=== PATIENT | female | born 1970 | race African-American/Black ===

== ENCOUNTER → 2016-10-07 | Outpatient (CLI) | payer MEDICARE, MEDICAID ==
[2016-03-13 11:31] VITALS: BP 144/98
[~2016-10-07] MED LIST: AMLO5TAB2 PO; BIOT5TAB PO; BUPR100T6 PO; CETI10CA PO; CHOL100013 PO; CYAN10005 PO; CYCL10TA2 PO; CYCL1DRO OP; FERR-26 PO; HYDR12.53 PO; HYDR12.58 PO; KETO10DR6 EACHEYE; NAPR550T3 PO; OMEG500C PO; OXYC-323 PO; PILO5TAB11 PO; SENN1TAB7 PO; ZALE5CAP PO
--- NOTE | 2016-10-07 15:48 | CARD ---
APPROVED REPORT INDICATION Chest Pain Reason : Patient complained of pain PROCEDURE The patient underwent an Exercise Stress Test using the Manuel Protocol. Blood pressure, heart rate, a nd EKG were monitored. An Echocardiogram was performed by plastic surgery technician in four stages in quad fashion. At peak stress four se lected images were obtained and placed side by side with resting images for comparison. STRESS ECHO FINDINGS The resting Echocardiogram showed normal left ventricular contractility with an estimated Ejection Fr action of about 60 %. Normal augmentation of myocardial wall segments using a 16 segment model. Test Type: Exercise Stress Nurse/Tech: victorino white Test Indications: intermittent chest pain Cardiac History and Allergies: HTN, SEE EHR Medications: SEE EHR Medical History: RECENT POST HTN, SEE EHR Resting ECG: SR Resting Heart Rate: 96 bpm Resting Blood Pressure: 121/69mmHg Pretest Chest Pain: No chest pain Nurse/Tech Notes DENIES SOA OR CHEST PAIN AT THIS TIME. Consent: The procedure was explained to the patient in lay terms. Informed consent was witnessed. Adan eout was entered into [employer]. History and Stress Test performed by VICTORINO WHITE Stress Symptoms LEG FATIGUE, SOA, PT WAS AT A BRISK WALK. POST EXERCISE Reason for Termination: Reached target heart rate Target HR: 149 Max HR: 166 bpm 95% of Maximum Predicted HR: 175 bpm Exercise duration: 7:35 min:sec, 3 Stage Exercise capacity: 10.0METs Max Blood Pressure: 140/77mmHg Blood Pressure response to exercise: Normal blood pressure response during stress. Heart Rate response to exercise: WNL Chest Pain: No. Arrhythmia: No. ST Change: No. INTERPRETATION Stress EKG Conclusion: No evidence of stress induced EKG changes. STRESS ECG Stress EKG shows no significant changes. Preliminary Notification Critical Value: No <Conclusion> Normal EKG at baseline and peak stress. No ischemia. Baseline echo with normal LV function and wall motion. EF 55% Stress echo with normal LV function, some images obtained at less than peak stress (decreasing specif icity of test) but overall no significant wall motion abnormality.
== END | disposition home or self-care (01) ==
LOC: ECHO 12:40
PROVIDERS: ATTEND Physician Assistant Medical
DX: R07.9 Chest pain, unspecified (principal)
CPT/HCPCS: 93017; 93350

== ENCOUNTER → 2018-06-15 | Outpatient (CLI) | payer MEDICARE, MEDICAID ==
[2016-03-13 11:31] VITALS: BP 144/98
[~2018-06-15] MED LIST changes: -AMLO5TAB2 PO; +AMLO5TAB7 PO; -FERR-26 PO; +FERR325T14 PO; -HYDR12.53 PO; +HYDR12.575 PO; +MORPHINE SULFATE 4 MG/ML VIAL. IV ONE; +NAPR-677 PO; -NAPR550T3 PO; -OXYC-323 PO; +OXYC1TAB15 PO; -SENN1TAB7 PO; +SENN1TAB8 PO
--- NOTE | 2018-06-15 10:40 | RAD ---
EXAM: Abdomen sonogram limited. HISTORY: Pain. TECHNIQUE: Sonographic imaging of the abdomen was performed. COMPARISON: None. FINDINGS: The liver is normal in size. No focal hepatic lesion is seen. There is suspected slight hepatic steatosis. The gallbladder is filled with stones. There is no gallbladder wall thickening. The common bile duct is normal in caliber. The right kidney, pancreas, and inferior vena cava are unremarkable. The aorta is not assessed. IMPRESSION: 1. Stone filled gallbladder. There is no convincing evidence of superimposed cholecystitis. 2. Suspected slight hepatic steatosis. Electronically signed by: Sinai Collins MD (06/15/2018 10:36 AM) [id number]
--- NOTE | 2018-06-15 12:45 | RAD ---
HEPATOBILIARY SCAN WITH EJECTION FRACTION 06/15/2018 12:23 PM History: STONES ON U.S. 4MG MORPHINE IV POST I HR OF IMAGING 5.5MCI 99MTC CHOLETEC ABDMONIAL PAIN X 1 MONTH COMPARISON STUDY: Abdominal ultrasound, earlier today Procedure: Serial static images are obtained of the liver and biliary system in the frontal projection following IV administration of 5.5 mCi of Technetium 99m Choletec. The gallbladder was not visualized at 1 hour. 4 mg of morphine was given. Imaging of the abdomen was continued. Findings: The gallbladder is nonvisualized. Filling of the biliary tree and excretion of radiotracer into the bowel is noted. Despite the administration of morphine, gallbladder remained nonvisualized. IMPRESSION: Nonvisualization of the gallbladder. Findings raise concern for acute cholecystitis. Electronically signed by: Ronnie Vickers MD (06/15/2018 12:41 PM) [id number]
== END | disposition home or self-care (01) ==
LOC: US 08:04
PROVIDERS: ATTEND Internal Medicine Gastroenterology
DX: R10.11 Right upper quadrant pain (principal); R10.13 Epigastric pain
CPT/HCPCS: 76705; 78227; A9537; J2270

== ENCOUNTER 2018-07-02 09:25 | Day surgery (SDC) | payer MEDICARE, MEDICAID ==
[~2018-07-02] VITALS: Ht 163.8 cm; Wt 81.2 kg
[~2018-07-02 09:25] MED LIST changes: +HYDROmorphone 2 MG/ML VIAL IV PRN; +IV RINGERS,LACTATED 1000ML 1,000 ML IV SCH; +LIDOCAINE 1% PF 2 ML VIAL. ID PRN; -MORPHINE SULFATE 4 MG/ML VIAL. IV ONE; +MORPHINE SULFATE 4 MG/ML VIAL. IV PRN; +ONDANSETRON PF 4 MG/2 ML VIAL. IV PRN; +PROCHLORPERAZINE 10 MG/2 ML VIAL. IV PRN; +fentaNYL PF VIAL 100 MCG/2 ML VIAL IV PRN
[2018-07-02] MEDS ORDERED: LIDOCAINE 2% PF Vial for OR 5 ML VIAL. ONE (09:39)
[2018-07-02] MEDS ORDERED: PROPOFOL 20 ML IV ONE (09:39)
[2018-07-02] MEDS ORDERED: ROCURONIUM 50 MG/5 ML VIAL. ONE (09:39)
[2018-07-02] MEDS ORDERED: fentaNYL PF VIAL 100 MCG/2 ML VIAL ONE ×2 (09:39→11:43)
[2018-07-02 09:53] LABS: U PREG PATIENT NEGATIVE (NEG)
[2018-07-02] MEDS ORDERED: SPIR50TA4 PO (09:55)
[2018-07-02] MEDS ORDERED: METF850T8 PO (09:55)
[2018-07-02] MEDS ORDERED: [UNRECOGNIZED DRUG - OTHER] (09:56)
[2018-07-02] MEDS ORDERED: MAGN400C PO (09:57)
[2018-07-02] MEDS ORDERED: CYCL10TA2 PO (09:58)
[2018-07-02] MEDS ORDERED: OMEG1CAP29 PO (09:58)
[2018-07-02] MEDS ORDERED: NALT50TA PO (09:59)
[2018-07-02] MEDS ORDERED: FAMO-63 PO (10:00)
[2018-07-02] MEDS ORDERED: BUPIVAC MPF-EPI 0.5%-1:200000 30 ML VIAL. ONE (10:12)
[2018-07-02] MEDS ORDERED: IOHEXOL 300 MG/ML 100ML VIAL. ONE (10:12)
[2018-07-02] MEDS ORDERED: SURGICEL HEMOSTAT 4X8 EACH. ONE (10:13)
[2018-07-02] MEDS ORDERED: ESMOLOL 100 MG/10 ML VIAL. IV ONE (10:49)
[2018-07-02] MEDS ORDERED: DEXAMETHASONE SOD PHOS 20 MG/5 ML VIAL. ONE (10:49)
[2018-07-02] MEDS ORDERED: GLYCOPYRROLATE 1 MG/5 ML VIAL. ONE (10:50)
[2018-07-02] MEDS ORDERED: ONDANSETRON PF 4 MG/2 ML VIAL. ONE (10:50)
[2018-07-02] MEDS ORDERED: PHENYLEPHRINE 10 MG/ML VIAL. ONE (11:18)
--- NOTE | 2018-07-02 11:27 | PDOC4 ---
Operative Note Operative Note Date: 07/02/2018 Preoperative diagnosis: Chronic cholecystitis cholelithiasis Postoperative diagnosis: Same Surgeon: Frantz Specimen: Gallbladder Procedure: Laparoscopic cholecystectomy Dictation: Patient is 47-year-old female has had right upper quadrant abdominal pain ultrasound showing gallstones procedure of laparoscopic cholecystectomy was explained to the patient in detail risk benefits were also discussed including bleeding infection injury to intra-abdominal contents possibly necessitating further open operations. The patient seemed to understand and gave both verbal and written consent had procedure performed. Patient was taken to the operating room placed in supine position general anesthesia was initiated once patient was sleeping intubated her abdomen was prepped and draped usual sterile fashion using ChloraPrep. An area just below the umbilicus was injected with quarter percent Marcaine with epinephrine incision was made limbal at scalpel there is needle was placed within the abdomen. Pneumoperitoneum was established At this time a 5mm port was placed in the epigastrium 5mm port was placed in the right lateral abdomen and one in the right midabdomen the dome of the gallbladder was grasped and retracted cephalad infundibulum of the gallbladder was grasped retracted laterally exposing the triangle he had tissue trying were taken down exposing the cystic duct and cystic artery both were doubly clipped and transected the gallbladder was taken off the liver with eclectic cautery. Gallbladder is placed in an Endo Catch bag and removed from the umbilicus the right upper quadrant was irrigated suctioned dry hemostase deemed appropriate pneumoperitoneum was reduced all ports removed the fascial defect at the umbilicus closed [id number] Vicryl suture and the skin is approximated all port sites for septic to the Monocryl Mastisol Steri-Strips and Band-Aids were applied as dressings. Patient was awakened and extubated in the operating room taken recovery in stable condition all sponge instrument needle counts listed as practice medical blood loss 5 mL JADEN WAYNE MD Jul 02, 2018 11:27
--- NOTE | 2018-07-02 11:28 | DISCH ---
DISCHARGE INSTRUCTIONS Condition on Discharge Condition on Discharge: Stable Activity After Discharge Activity Instructions for Disc: Avoid exertion Other activity instructions: no lifting more than 20 pounds for 2 weeks Diet after Discharge Diet after Discharge: Low Fat Wound Incision Care Other wound/incision instructi: May shower in 24 hours Contacting the after DC Call your doctor for: If your condition worsens Follow-Up Follow up with: Dr. Wayne in 2 weeks AJDEN WAYNE MD Jul 02, 2018 11:28
[2018-07-02] MEDS: fentaNYL PF VIAL 100 MCG/2 ML VIAL IV PRN ×2 (11:46→11:59)
[2018-07-02] MEDS ORDERED: OXYC-325 PO (12:27)
[2018-07-02] MEDS ORDERED: oxyCODONE/APAP 5/325 1 TAB TABLET PO ONE ×2 (12:30)
[2018-07-02 12:55] VITALS: BP 143/84
--- NOTE | 2018-07-03 16:09 | PATHOLOGY ---
[facility] Accession Number: [id number] . 01 Material submitted: . GALLBLADDER . 01 Clinical history: . Cholecystitis. . 02 Diagnosis: Gallbladder, laparoscopic cholecystectomy: - Cholelithiasis. - Chronic cholecystitis. [facility]/07/03/2018 . 02 Comment: There is no evidence of malignancy. (JPM:[facility] 07/03/2018) . 02 Electronically signed: . Demario Pedroza MD, Pathologist NPI- [id number] . 01 Gross description: . Received in formalin labeled "Winsome Berger, gallbladder" is an intact cholecystectomy specimen measuring 6.6 x 3.2 x 2.4 cm. The serosa is pink-grande and smooth and the specimen is opened to reveal yellow-green velvety mucosa and an average wall thickness of 0.2 cm. No polyps or masses are identified. One green-black roughened calculus is present measuring 0.7 cm in greatest dimension. Rigging Worker sections of the fundus and body and the cystic duct margin are submitted in cassette A1. [place] SY/SYC . 02 Pathologist provided ICD-10: K80.10 . 02 CPT . 824159 Specimen Comment: A courtesy copy of this report has been sent to Specimen Comment: [phone], . Specimen Comment: Report sent to / DR CLEVELAND Specimen Comment: A duplicate report has been generated due to demographic updates. Performed at: 01 [facility] [address], [place] [id number] MD Mario Huang MD Phone: [phone] Performed at: 02 [facility] [address] [place], [place] [id number] MD Demario Pedroza MD Phone: [phone]
== END 2018-07-02 13:07 | disposition home or self-care (01) ==
LOC: SURG 09:25
PROVIDERS: ATTEND Surgery
DX: K80.10 Calculus of gallbladder with chronic cholecystitis without obstruction (principal); I10 Essential (primary) hypertension; F32.9 Major depressive disorder, single episode, unspecified; F41.9 Anxiety disorder, unspecified; K21.9 Gastro-esophageal reflux disease without esophagitis; M19.90 Unspecified osteoarthritis, unspecified site; K58.9 Irritable bowel syndrome, unspecified; M50.30 Other cervical disc degeneration, unspecified cervical region; Z88.1 Allergy status to other antibiotic agents; Z88.8 Allergy status to other drugs, medicaments and biological substances; Z79.899 Other long term (current) drug therapy; Z98.51 Tubal ligation status; Z98.890 Other specified postprocedural states; Z83.3 Family history of diabetes mellitus; Z82.49 Family history of ischemic heart disease and other diseases of the circulatory system; Z82.61 Family history of arthritis
CPT/HCPCS: 47562; 81025; 82962; A7015; J0696; J0780; J1100; J2001; J2405; J2704; J3010; J3490; J7030; Q9967

== ENCOUNTER → 2020-01-13 | Outpatient (CLI) | payer MEDICARE, MEDICAID ==
[~2020-01-13] MED LIST changes: +AMLO5TAB10 PO; -AMLO5TAB7 PO; +CYAN-25 PO; -CYAN10005 PO; +FAMO-63 PO; -HYDROmorphone 2 MG/ML VIAL IV PRN; -IV RINGERS,LACTATED 1000ML 1,000 ML IV SCH; -LIDOCAINE 1% PF 2 ML VIAL. ID PRN; +MAGN400C PO; +METF850T8 PO; -MORPHINE SULFATE 4 MG/ML VIAL. IV PRN; +NALT50TA PO; +OMEG1CAP29 PO; -ONDANSETRON PF 4 MG/2 ML VIAL. IV PRN; +OXYC-325 PO; -PROCHLORPERAZINE 10 MG/2 ML VIAL. IV PRN; +SENN-161 PO; -SENN1TAB8 PO; +SPIR50TA4 PO; +[UNRECOGNIZED DRUG - OTHER]; -fentaNYL PF VIAL 100 MCG/2 ML VIAL IV PRN
--- NOTE | 2020-01-13 14:52 | KCIC ---
PELVIS W/TV History: Estrogen excess Comparison: None. Findings: Multiple transabdominal sonographic images of pelvis are submitted. Uterus measured 13.7 x 4.6 cm x 8.7 cm. Endometrium is thin at 0.3 cm. There is a somewhat heterogeneous hypoechoic mass of the lower uterine segment about 1.9 x 1.8 cm, not associated with significant hypervascularity on color Doppler imaging. Right ovary measured 4.8 x 2.3 x 3.6 cm. There is a nearly anechoic lesion of the right ovary up to 2.1 x 1.9 x 1.7 cm, increased through transmission, not associated with internal vascularity on color Doppler imaging. There is normal color flow and low resistance vascularity of the right ovary. Left ovary measured 2.6 x 2 x 2.1 cm, normal color flow and low resistance vascularity. Transvaginal ultrasound: Multiple transvaginal sonographic images of the pelvis are submitted. There is a hypoechoic mass in the region of cervix measuring about 1.5 x 1.3 x 1.6 cm, not associated with significant hypervascularity although questionable tiny vessels centrally. There are internal echoes present. Uterus measured 12.1 x 7.6 x 6.2 cm. Endometrium measured about 0.6 cm in thickness. Right ovary measured 5.1 x 3.9 x 3.2 cm. There is a hypoechoic lesion of the right ovary with minimal internal echoes and increased through transmission measuring about 1.9 x 1.7 x 2 cm. There is normal color flow of the right ovary. There is no significant hypervascularity associated with the hypoechoic lesion of the right ovary. Left ovary could not be visualized on this portion of exam. No free fluid is demonstrated. IMPRESSION: 1. There is a somewhat complex cystic mass of the cervix although not significantly hypervascular. 2. There is a right ovarian cyst, does not have solid features. Electronically signed by: Khai Nesbitt MD (01/13/2020 2:49 PM) [id number]
== END ==
LOC: KCIC US 13:09
PROVIDERS: ATTEND Obstetrics & Gynecology
DX: N88.8 Other specified noninflammatory disorders of cervix uteri (principal); N83.201 Unspecified ovarian cyst, right side
CPT/HCPCS: 76830; 76856

== ENCOUNTER → 2020-04-13 | Outpatient (CLI) | payer MEDICARE, MEDICAID ==
[~2020-04-13] MED LIST changes: +AMLO-186 PO; -AMLO5TAB10 PO
== END ==
LOC: SPEC 11:15
PROVIDERS: ATTEND Obstetrics & Gynecology
DX: N89.8 Other specified noninflammatory disorders of vagina (principal)
CPT/HCPCS: Q0111

== ENCOUNTER 2020-06-19 16:59 | Inpatient (IN) | payer MEDICARE, MEDICAID ==
[~2020-06-19] VITALS: Ht 162.6 cm; Wt 76.5 kg
[2020-06-19] MEDS ORDERED: LIDO:MAALOX 1:1 20 ML SINGLE DOSE. SWSW ONE (17:15)
[2020-06-19] MEDS ORDERED: FAMOTIDINE 20 MG/2 ML VIAL ONE (17:20)
[2020-06-19] MEDS ORDERED: ASPIRIN 325 MG TABLET PO ONE (17:45)
[2020-06-19] MEDS ORDERED: FAMOTIDINE 20 MG/2 ML VIAL IVP ONE (17:45)
[2020-06-19 17:52] LABS: BASO % 0 % (0-3); EOS # 0.1 x10^3/uL (0.0-0.7); EOS % 1 % (0-3); HEMATOCRIT 38.4 % (36.0-47.0); HEMOGLOBIN 12.7 g/dL (12.0-15.5); LYMPH # 2.1 x10^3/uL (1.0-4.8); LYMPH % 40 % (24-48); MEAN CORPUSCULAR HEMOGLOBIN 30 pg (25-35); MEAN CORPUSCULAR HGB CONC 33 g/dL (31-37); MEAN CORPUSCULAR VOLUME 92 fL (79-100); MONO # 0.4 x10^3/uL (0.0-1.1); MONO % 7 % (0-9); NEUT # 2.8 x10^3/uL (1.8-7.7); NEUT % 52 % (31-73); PLATELET COUNT 199 x10^3/uL (140-400); RED BLOOD COUNT 4.19 x10^6/uL (3.50-5.40); RED CELL DISTRIBUTION WIDTH 13.4 % (11.5-14.5); WHITE BLOOD COUNT 5.4 x10^3/uL (4.0-11.0)
--- NOTE | 2020-06-19 17:52 | RAD ---
EXAM: CHEST 1 VIEW History: Chest pain COMPARISON: None available. TECHNIQUE: Single portable radiograph of the chest FINDINGS: The cardiac silhouette is unremarkable. The lungs are clear bilaterally. The costophrenic sulci are clear and well demarcated. IMPRESSION: No radiographic evidence of an acute cardiopulmonary process. Electronically signed by: Kale Montesinos MD (06/19/2020 5:50 PM) [id number]
[2020-06-19 18:00] LABS: CALCIUM 9.1 mg/dL (8.5-10.1); CREATININE 0.9 mg/dL (0.6-1.0); GFR 80.9; POTASSIUM 3.8 mmol/L (3.5-5.1)
[2020-06-19 18:01] LABS: PROTHROMBIN TIME PATIENT 11.9 SEC (11.7-14.0)
[2020-06-19 18:05] LABS: ALBUMIN 3.6 g/dL (3.4-5.0); MAGNESIUM 1.9 mg/dL (1.8-2.4); TOTAL BILIRUBIN 0.4 mg/dL (0.2-1.0); TOTAL PROTEIN 7.2 g/dL (6.4-8.2)
[2020-06-19 18:16] LABS: BILIRUBIN,URINE NEGATIVE (NEG); CLARITY,URINE CLEAR; COLOR,URINE YELLOW; NITRITE,URINE NEGATIVE (NEG); PH,URINE 5.5 (<5.0-8.0); PROTEIN,URINE NEGATIVE (NEG-TRACE); UROBILINOGEN,URINE 0.2 mg/dL (0.2 mg/dL)
[2020-06-19 18:23] LABS: BARBITURATES NEG (NEG); BENZODIAZEPINES NEG (NEG); CANNABINOIDS NEG (NEG); COCAINE NEG (NEG); METHADONE NEG (NEG); OPIATES NEG (NEG); PHENCYCLIDINE NEG (NEG)
[2020-06-19 18:28] LABS: AMPHETAMINE/METHAMPHETAMINE NEG (NEG)
[2020-06-19 18:34] LABS: BACTERIA,URINE 0 /HPF (0-FEW); RBC,URINE OCC /HPF (0-2); WBC,URINE OCC /HPF (0-4)
[2020-06-19] MEDS: MORPHINE SULFATE 4 MG/ML VIAL. IV/SQ PRN ×2 (21:40→23:30)
[2020-06-19] MEDS ORDERED: ONDANSETRON PF 4 MG/2 ML VIAL. IV PRN (23:00)
[2020-06-19] MEDS ORDERED: ACETAMINOPHEN 325 MG TABLET. PO PRN (23:00)
[2020-06-19] MEDS ORDERED: NITROGLYCERIN SUBLINGUAL 0.4 MG BOTTLE OF 25. SL PRN (23:00)
--- NOTE | 2020-06-19 23:00 | PHYS DOC ---
Past Medical History Past Medical History: Hypertension Additional Past Medical Histor: SICCA, HERNIATED DISC,alopecia, shogruns syndrome Past Surgical History: Cholecystectomy, , Other Additional Past Surgical Histo: abdominoplasty Smoking Status: Former Smoker Additional Information: quit smoking >20 years ago Alcohol Use: None Drug Use: None General Adult EDM: Chief Complaint: CHEST PAIN HPI: HPI: Patient is a 49 year old female with history of hypertension who presents to the ED today complaining of a burning 5 out of 10 left-sided chest pain, symptoms began around 3 PM today. Patient denies anything exacerbating or relieving the pain. Denies any nausea vomiting. She states she thought was acid reflux, she states she tried taking Mylanta with no relief. Patient states she tested positive for COVID-19 on May 29, 2020. Review of Systems: Review of Systems: Constitutional: Denies fever or chills. [] Eyes: Denies change in visual acuity. [] HENT: Denies nasal congestion or sore throat. [] Respiratory: Denies cough or shortness of breath. [] Cardiovascular: Reports left-sided chest pain GI: Denies abdominal pain, nausea, vomiting, bloody stools or diarrhea. [] : Denies dysuria. [] Musculoskeletal: Denies back pain or joint pain. [] Integument: Denies rash. [] Neurologic: Denies headache, focal weakness or sensory changes. [] Psychiatric: Denies depression or anxiety. [] Heart Score: HEART Score for Chest Pain: HEART Score for Chest Pain Response (Comments) Value History Slighlty/Non-Suspicious 0 ECG Normal 0 Age >45 - < 65 1 Risk Factors 1 or 2 Risk Factors 1 Troponin < Normal Limit 0 Total 2 Risk Factors: Risk Factors: DM, Current or recent (<one month) smoker, HTN, HLP, family history of CAD, obesity. Risk Scores: Score 0 - 3: 2.5% MACE over next 6 weeks - Discharge Home Score 4 - 6: 20.3% MACE over next 6 weeks - Admit for Clinical Observation Score 7 - 10: 72.7% MACE over next 6 weeks - Early Invasive Strategies Current Medications: Current Medications Medications (Trade) Dose Ordered Sig/Nnamdi Start Time Stop Time Status Last Admin Dose Admin Aspirin (Susi Aspirin) 325 mg 1X ONCE 06/19/20 17:45 06/19/20 17:46 DC 1/11/21 17:30 325 MG Famotidine (Pepcid Vial) 20 mg STK-MED ONCE 06/19/20 17:20 06/19/20 17:21 DC Morphine Sulfate (Morphine Sulfate) 4 mg PRN Q15MIN PRN 06/19/20 17:15 06/20/20 17:14 06/19/20 21:40 4 MG Multi-Ingredient Mouthwash/Gargle (Gi Cocktail) 20 ml 1X ONCE 06/19/20 17:15 06/19/20 17:20 DC 06/19/20 17:30 20 ML Allergies: Allergies: Allergies Coded Allergies Type Severity Reaction Last Updated Verified sulfamethoxazole Allergy Intermediate Rash 06/19/20 Yes trimethoprim Allergy Intermediate Rash 06/19/20 Yes prednisone Allergy Unknown 06/19/20 Yes triamcinolone Allergy Unknown Unknown 06/19/20 Yes hydroxychloroquine Adverse Reaction Intermediate NAUSEA 06/19/20 Yes labetalol Adverse Reaction Mild Nausea 06/19/20 Yes Physical Exam: PE: Constitutional: Well developed, well nourished, no acute distress, non-toxic appearance. [] HENT: Normocephalic, atraumatic, bilateral external ears normal, oropharynx moist, no oral exudates, nose normal. [] Eyes: PERRLA, EOMI, conjunctiva normal, no discharge. [] Neck: Normal range of motion, no tenderness, supple, no stridor. [] Cardiovascular:Heart rate regular rhythm, no murmur [] Lungs & Thorax: Bilateral breath sounds clear to auscultation [] Abdomen: Bowel sounds normal, soft, no tenderness, no masses, no pulsatile masses. [] Skin: Warm, dry, no erythema, no rash. [] Back: No tenderness, no CVA tenderness. [] Extremities: No tenderness, no cyanosis, no clubbing, ROM intact, no edema. [] Neurologic: Alert and oriented X 3, normal motor function, normal sensory function, no focal deficits noted. [] Psychologic: Affect normal, judgement normal, mood normal. [] Current Patient Data: Labs: Laboratory Tests Test 06/19/20 17:25 06/19/20 18:03 06/19/20 21:30 White Blood Count 5.4 x10^3/uL (4.0-11.0) Red Blood Count 4.19 x10^6/uL (3.50-5.40) Hemoglobin 12.7 g/dL (12.0-15.5) Hematocrit 38.4 % (36.0-47.0) Mean Corpuscular Volume 92 fL (79-100) Mean Corpuscular Hemoglobin 30 pg (25-35) Mean Corpuscular Hemoglobin Concent 33 g/dL (31-37) Red Cell Distribution Width 13.4 % (11.5-14.5) Platelet Count 199 x10^3/uL (140-400) Neutrophils (%) (Auto) 52 % (31-73) Lymphocytes (%) (Auto) 40 % (24-48) Monocytes (%) (Auto) 7 % (0-9) Eosinophils (%) (Auto) 1 % (0-3) Basophils (%) (Auto) 0 % (0-3) Neutrophils # (Auto) 2.8 x10^3/uL (1.8-7.7) Lymphocytes # (Auto) 2.1 x10^3/uL (1.0-4.8) Monocytes # (Auto) 0.4 x10^3/uL (0.0-1.1) Eosinophils # (Auto) 0.1 x10^3/uL (0.0-0.7) Basophils # (Auto) 0.0 x10^3/uL (0.0-0.2) Prothrombin Time 11.9 SEC (11.7-14.0) Prothrombin Time INR 0.9 (0.8-1.1) Sodium Level 140 mmol/L (136-145) Potassium Level 3.8 mmol/L (3.5-5.1) Chloride Level 103 mmol/L (98-107) Carbon Dioxide Level 28 mmol/L (21-32) Anion Gap 9 (6-14) Blood Urea Nitrogen 11 mg/dL (7-20) Creatinine 0.9 mg/dL (0.6-1.0) Estimated GFR (Cockcroft-Gault) 80.9 BUN/Creatinine Ratio 12 (6-20) Glucose Level 184 mg/dL (70-99) H Calcium Level 9.1 mg/dL (8.5-10.1) Magnesium Level 1.9 mg/dL (1.8-2.4) Total Bilirubin 0.4 mg/dL (0.2-1.0) Aspartate Amino Transferase (AST) 15 U/L (15-37) Alanine Aminotransferase (ALT) 21 U/L (14-59) Alkaline Phosphatase 51 U/L (46-116) Troponin I Quantitative < 0.017 ng/mL (0.000-0.055) < 0.017 ng/mL (0.000-0.055) XO-Aum-E-Type Natriuretic Peptide 15 pg/mL (0-124) Total Protein 7.2 g/dL (6.4-8.2) Albumin 3.6 g/dL (3.4-5.0) Albumin/Globulin Ratio 1.0 (1.0-1.7) Lipase 201 U/L (73-393) Thyroid Stimulating Hormone (TSH) 0.863 uIU/mL (0.358-3.74) Urine Collection Type Void Urine Color Yellow Urine Clarity Clear Urine pH 5.5 (<5.0-8.0) Urine Specific [place] <=1.005 (1.000-1.030) Urine Protein Negative mg/dL (NEG-TRACE) Urine Glucose (UA) Negative mg/dL (NEG) Urine Ketones (Stick) Negative mg/dL (NEG) Urine Blood Large (NEG) Urine Nitrite Negative (NEG) Urine Bilirubin Negative (NEG) Urine Urobilinogen Dipstick 0.2 mg/dL (0.2 mg/dL) Urine Leukocyte Esterase Negative (NEG) Urine RBC Occ /HPF (0-2) Urine WBC Occ /HPF (0-4) Urine Squamous Epithelial Cells Few /LPF Urine Bacteria 0 /HPF (0-FEW) Urine Opiates Screen Neg (NEG) Urine Methadone Screen Neg (NEG) Urine Barbiturates Neg (NEG) Urine Phencyclidine Screen Neg (NEG) Urine Amphetamine/Methamphetamine Neg (NEG) Urine Benzodiazepines Screen Neg (NEG) Urine Cocaine Screen Neg (NEG) Urine Cannabinoids Screen Neg (NEG) Urine Ethyl Alcohol Neg (NEG) Laboratory Tests 06/19/20 17:25 Laboratory Tests 06/19/20 17:25 Vital Signs: Vital Signs Date Time Temp Pulse Resp B/P (MAP) Pulse Ox O2 Delivery O2 Flow Rate FiO2 06/19/20 18:35 84 136/91 (106) 99 Room Air 06/19/20 18:05 24 06/19/20 17:09 97.4 97.4 EKG: EK interpreted by Dr. Lacey sinus rhythm HR 79 no STEMI[] Radiology/Procedures: Radiology/Procedures: []PROCEDURE: PORTABLE CHEST 1V EXAM: CHEST 1 VIEW History: Chest pain COMPARISON: None available. TECHNIQUE: Single portable radiograph of the chest FINDINGS: The cardiac silhouette is unremarkable. The lungs are clear bilaterally. The costophrenic sulci are clear and well demarcated. IMPRESSION: No radiographic evidence of an acute cardiopulmonary process. Electronically signed by: Kale Montesinos MD (06/19/2020 5:50 PM) [id number] DICTATED and SIGNED BY: KALE MONTESINOS MD DATE: 06/19/20 [id number] 0 Course & Med Decision Making: Course & Med Decision Making Pertinent Labs and Imaging studies reviewed. (See chart for details) This is a 49-year-old female patient presenting to the ED today complaining of left-sided chest pain that began at 1500 today. History of hypertension. EKG is negative, chest x-ray is negative, cardiac work-up is negative. Patient was given Pepcid, GI cocktail and pain medicine in the ED with no relief of her symptoms. I spoke to Dr. Cleveland who accepted patient for admission Routine consult placed for cardiology [place] Disclaimer: Kareem Disclaimer: This electronic medical record was generated, in whole or in part, using a voice recognition dictation system. Departure Departure Impression: Primary Impression: Chest pain Qualified Codes: R07.9 - Chest pain, unspecified Disposition: 09 ADMITTED INPT THIS HOSP Condition: STABLE Referrals: MARISELA CLEVELAND MD (PCP) HIWOT CUELLAR APRN Jun 19, 2020 22:59
[2020-06-20 01:20] VITALS: BP 124/89
[2020-06-20] MEDS: MORPHINE SULFATE 4 MG/ML VIAL. IV PRN ×2 (02:02→11:23)
[2020-06-20 07:00] VITALS: BP 111/75
[2020-06-20 08:07] LABS: BASO % 0 % (0-3); EOS # 0.1 x10^3/uL (0.0-0.7); EOS % 1 % (0-3); HEMATOCRIT 34.6 % (36.0-47.0); HEMOGLOBIN 11.6 g/dL (12.0-15.5); LYMPH # 2.5 x10^3/uL (1.0-4.8); LYMPH % 48 % (24-48); MEAN CORPUSCULAR HEMOGLOBIN 31 pg (25-35); MEAN CORPUSCULAR HGB CONC 34 g/dL (31-37); MEAN CORPUSCULAR VOLUME 92 fL (79-100); MONO # 0.4 x10^3/uL (0.0-1.1); MONO % 7 % (0-9); NEUT # 2.2 x10^3/uL (1.8-7.7); NEUT % 43 % (31-73); PLATELET COUNT 171 x10^3/uL (140-400); RED BLOOD COUNT 3.78 x10^6/uL (3.50-5.40); RED CELL DISTRIBUTION WIDTH 13.3 % (11.5-14.5); WHITE BLOOD COUNT 5.1 x10^3/uL (4.0-11.0)
[2020-06-20 08:29] LABS: ALBUMIN 3.2 g/dL (3.4-5.0); ALBUMIN/GLOBULIN RATIO 1.2 (1.0-1.7); CALCIUM 8.3 mg/dL (8.5-10.1); CREATININE 0.8 mg/dL (0.6-1.0); GFR 92.6; POTASSIUM 3.9 mmol/L (3.5-5.1); TOTAL BILIRUBIN 0.6 mg/dL (0.2-1.0); TOTAL PROTEIN 5.8 g/dL (6.4-8.2)
[2020-06-20] MEDS ORDERED: busPIRone 10 MG TABLET. PO SCH (09:15)
--- NOTE | 2020-06-20 09:23 | PDOC ---
Provider Note Date of Service: DATE: 06/20/20 TIME: 09:23 Provider Note dictated Justifications for Admission Other Justification MARISELA CLEVELAND MD Jun 20, 2020 09:23
[2020-06-20] MEDS ORDERED: FAMOTIDINE 20 MG TABLET. PO SCH (09:30)
[2020-06-20] MEDS: PANTOPRAZOLE 40 MG TABLET.DR. PO SCH ×2 (10:30→19:21)
--- NOTE | 2020-06-20 10:51 | EKG ---
[facility] [address] [place] [address] Test Date: 2020-06-19 Test Time: 17:08:08 Pat Name: DEVORAH MOYER Department: Room: 260 1 Gender: F Extra Hand: : 1970 Requested By: HIWOT CUELLAR Order Number: [id number] Reading MD: Boyd De Paz MD Measurements Intervals [place] Rate: 79 P: 26 NM: 172 QRS: 0 QRSD: 74 T: 35 QT: 372 QTc: 428 Interpretive Statements SINUS RHYTHM Electronically Signed On 06-20-2020 12:41:36 OXYGEN FURNACE OPERATOR by Boyd De Paz MD
[2020-06-20 11:00] VITALS: BP 118/94
[2020-06-20] MEDS: metFORMIN 500 MG TABLET PO SCH (11:05)
[2020-06-20] MEDS: CYCLOBENZAPRINE 10 MG TABLET. PO SCH ×3 (11:06→21:16)
[2020-06-20] MEDS: SPIRONOLACTONE 25 MG TABLET PO SCH (11:06)
[2020-06-20] MEDS ORDERED: DULO20CA PO (11:17)
[2020-06-20] MEDS ORDERED: CLON1TAB12 PO (11:17)
[2020-06-20] MEDS ORDERED: PILO7.5T4 PO (11:17)
--- NOTE | 2020-06-20 11:26 | NUR ---
SS following for discharge planning. SS reviewed pt chart and discussed with pt RN. Pt is from home and is currently on room air. Pt is COVID19 recovered. ECHO ordered. SS will continue to follow for discharge planning.
--- NOTE | 2020-06-20 11:58 | PDOC2 ---
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 Reports as left lower sternal burning sensation. No radiation. denies any exertional CP nor JOSHI. No recent falls or injury. Denies any past hx of CAD, VTE or arrhythmias. Denies frequnent NSAID use but does eat spicy foods and does take pepcid. Denies any jaw tightness or arm heaviness. No recent pneumonia. She did have covid-19 in 05/28 and did not get hospitalized and has recovered since then without residual effects and her household members are doing good as well. 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) PAST SURGICAL HISTORY Past Surgical History: Cholecystectomy, , Tubal Ligation FAMILY HISTORY Family History: Hypertension SOCIAL HISTORY Smoke: Quit ALCOHOL: none Drugs: None Lives: with Family CURRENT MEDICATIONS CURRENT MEDICATIONS Current Medications Medications (Trade) Dose Ordered Sig/Nnamdi Route PRN Reason Start Time Stop Time Status Last Admin Dose Admin Aspirin (Susi Aspirin) 325 mg 1X ONCE PO 06/19/20 17:45 06/19/20 17:46 DC 06/19/20 17:30 Morphine Sulfate (Morphine Sulfate) 4 mg PRN Q15MIN PRN IV/SQ PAIN GREATER THAN 3/10 06/19/20 17:15 06/20/20 17:14 06/19/20 23:30 Multi-Ingredient Mouthwash/Gargle (Gi Cocktail) 20 ml 1X ONCE SWSW 06/19/20 17:15 06/19/20 17:20 DC 06/19/20 17:30 Famotidine (Pepcid Vial) 20 mg 1X ONCE IVP 06/19/20 17:45 06/19/20 17:46 DC 06/19/20 17:42 Morphine Sulfate (Morphine Sulfate) 4 mg PRN Q2HR PRN IV PAIN 06/19/20 23:00 06/20/20 22:59 06/20/20 11:23 Cyclobenzaprine HCl (Flexeril) 10 mg TID PO 06/20/20 09:30 06/20/20 11:06 Famotidine (Pepcid) 20 mg BID PO 06/20/20 09:30 06/20/20 11:06 Metformin HCl (Glucophage) 500 mg DAILYWBKFT PO 06/20/20 09:30 06/20/20 11:05 Spironolactone (Aldactone) 50 mg DAILY PO 06/20/20 09:30 06/20/20 11:06 ALLERGIES ALLERGIES: Coded Allergies: sulfamethoxazole (Verified Allergy, Intermediate, Rash, 06/19/20) trimethoprim (Verified Allergy, Intermediate, Rash, 06/19/20) prednisone (Verified Allergy, Unknown, 06/19/20) TURNED RED ALL OVER triamcinolone (Verified Allergy, Unknown, Unknown, 06/19/20) hydroxychloroquine (Verified Adverse Reaction, Intermediate, NAUSEA, 06/19) labetalol (Verified Adverse Reaction, Mild, Nausea, 06/19/20) ROS Review of System 14 point ROS evalauted with pertinent positives noted per HPI PHYSICAL EXAM General: Alert, Oriented X3, Cooperative, No acute distress HEENT: Atraumatic, Mucous membr. moist/pink Lungs: Clear to auscultation, Normal air movement Heart: Regular rate (SR), Normal S1, Normal S2, No murmurs Abdomen: Soft, No tenderness Extremities: No cyanosis, No edema Skin: No breakdown, No significant lesion Neuro: Normal speech, Sensation intact Psych/Mental Status: Mental status NL, Mood NL MUSCULOSKELETAL: Osteoarthritic changes both hands VITALS/I&O VITALS/I&O: Vital Signs Date Time Temp Pulse Resp B/P (MAP) Pulse Ox O2 Delivery O2 Flow Rate FiO2 06/20/20 11:23 Room Air 06/20/20 07:00 97.5 62 16 111/75 (87) 97 97.5 I & O 06/19/20 06/19/20 06/20/20 15:00 23:00 07:00 Intake Total 0 ml Balance 0 ml LABS Lab: Laboratory Tests Test 06/19/20 17:25 06/19/20 18:03 06/19/20 21:30 06/20/20 07:09 White Blood Count 5.4 x10^3/uL (4.0-11.0) 5.1 x10^3/uL (4.0-11.0) Red Blood Count 4.19 x10^6/uL (3.50-5.40) 3.78 x10^6/uL (3.50-5.40) Hemoglobin 12.7 g/dL (12.0-15.5) 11.6 g/dL (12.0-15.5) L Hematocrit 38.4 % (36.0-47.0) 34.6 % (36.0-47.0) L Mean Corpuscular Volume 92 fL (79-100) 92 fL (79-100) Mean Corpuscular Hemoglobin 30 pg (25-35) 31 pg (25-35) Mean Corpuscular Hemoglobin Concent 33 g/dL (31-37) 34 g/dL (31-37) Red Cell Distribution Width 13.4 % (11.5-14.5) 13.3 % (11.5-14.5) Platelet Count 199 x10^3/uL (140-400) 171 x10^3/uL (140-400) Neutrophils (%) (Auto) 52 % (31-73) 43 % (31-73) Lymphocytes (%) (Auto) 40 % (24-48) 48 % (24-48) Monocytes (%) (Auto) 7 % (0-9) 7 % (0-9) Eosinophils (%) (Auto) 1 % (0-3) 1 % (0-3) Basophils (%) (Auto) 0 % (0-3) 0 % (0-3) Neutrophils # (Auto) 2.8 x10^3/uL (1.8-7.7) 2.2 x10^3/uL (1.8-7.7) Lymphocytes # (Auto) 2.1 x10^3/uL (1.0-4.8) 2.5 x10^3/uL (1.0-4.8) Monocytes # (Auto) 0.4 x10^3/uL (0.0-1.1) 0.4 x10^3/uL (0.0-1.1) Eosinophils # (Auto) 0.1 x10^3/uL (0.0-0.7) 0.1 x10^3/uL (0.0-0.7) Basophils # (Auto) 0.0 x10^3/uL (0.0-0.2) 0.0 x10^3/uL (0.0-0.2) Prothrombin Time 11.9 SEC (11.7-14.0) Prothrombin Time INR 0.9 (0.8-1.1) Sodium Level 140 mmol/L (136-145) 143 mmol/L (136-145) Potassium Level 3.8 mmol/L (3.5-5.1) 3.9 mmol/L (3.5-5.1) Chloride Level 103 mmol/L (98-107) 107 mmol/L (98-107) Carbon Dioxide Level 28 mmol/L (21-32) 26 mmol/L (21-32) Anion Gap 9 (6-14) 10 (6-14) Blood Urea Nitrogen 11 mg/dL (7-20) 12 mg/dL (7-20) Creatinine 0.9 mg/dL (0.6-1.0) 0.8 mg/dL (0.6-1.0) Estimated GFR (Cockcroft-Gault) 80.9 92.6 BUN/Creatinine Ratio 12 (6-20) 15 (6-20) Glucose Level 184 mg/dL (70-99) H 105 mg/dL (70-99) H Calcium Level 9.1 mg/dL (8.5-10.1) 8.3 mg/dL (8.5-10.1) L Magnesium Level 1.9 mg/dL (1.8-2.4) Total Bilirubin 0.4 mg/dL (0.2-1.0) 0.6 mg/dL (0.2-1.0) Aspartate Amino Transferase (AST) 15 U/L (15-37) 13 U/L (15-37) L Alanine Aminotransferase (ALT) 21 U/L (14-59) 20 U/L (14-59) Alkaline Phosphatase 51 U/L (46-116) 48 U/L (46-116) Troponin I Quantitative < 0.017 ng/mL (0.000-0.055) < 0.017 ng/mL (0.000-0.055) < 0.017 ng/mL (0.000-0.055) IE-Hfs-B-Type Natriuretic Peptide 15 pg/mL (0-124) Total Protein 7.2 g/dL (6.4-8.2) 5.8 g/dL (6.4-8.2) L Albumin 3.6 g/dL (3.4-5.0) 3.2 g/dL (3.4-5.0) L Albumin/Globulin Ratio 1.0 (1.0-1.7) 1.2 (1.0-1.7) Lipase 201 U/L (73-393) Thyroid Stimulating Hormone (TSH) 0.863 uIU/mL (0.358-3.74) Urine Collection Type Void Urine Color Yellow Urine Clarity Clear Urine pH 5.5 (<5.0-8.0) Urine Specific [place] <=1.005 (1.000-1.030) Urine Protein Negative mg/dL (NEG-TRACE) Urine Glucose (UA) Negative mg/dL (NEG) Urine Ketones (Stick) Negative mg/dL (NEG) Urine Blood Large (NEG) Urine Nitrite Negative (NEG) Urine Bilirubin Negative (NEG) Urine Urobilinogen Dipstick 0.2 mg/dL (0.2 mg/dL) Urine Leukocyte Esterase Negative (NEG) Urine RBC Occ /HPF (0-2) Urine WBC Occ /HPF (0-4) Urine Squamous Epithelial Cells Few /LPF Urine Bacteria 0 /HPF (0-FEW) Urine Opiates Screen Neg (NEG) Urine Methadone Screen Neg (NEG) Urine Barbiturates Neg (NEG) Urine Phencyclidine Screen Neg (NEG) Urine Amphetamine/Methamphetamine Neg (NEG) Urine Benzodiazepines Screen Neg (NEG) Urine Cocaine Screen Neg (NEG) Urine Cannabinoids Screen Neg (NEG) Urine Ethyl Alcohol Neg (NEG) Laboratory Tests 06/19/20 17:25 06/20/20 07:09 Laboratory Tests 06/19/20 17:25 06/20/20 07:09 ASSESSMENT/PLAN ASSESSMENT/PLAN 1. Atypical chest pain: suspect from GI. possibly GERD exac 2. Recovered Covid-19 noted 05/28/2020 3. HTN: controlled 4. Anxiety Recommendations 1. Consider changing pepcid to PPI. diet modification 2. TTE pending per PCP 3. Discussed CAD s/s, No further cardiac workup. DEANDRE ALVAREZ MD 06/20/20 1242: CARDIAC CONSULT ASSESSMENT/PLAN ASSESSMENT/PLAN Patient seen and examined. Agree with above nurse practitioner note. 49-year-old woman presenting with noncardiac chest pain. Her blood pressures were very well controlled. Her EKG and cardiac enzymes are unremarkable. It appears that the patient is on spironolactone, it is likely that this is being used for acne and skin issues rather than true hypertension. No further cardiac testing necessary at this time. Supportive care. Follow-up with her primary care physician. ELYSIA SUERO APRN Jun 20, 2020 11:58 DEANDRE ALVAREZ MD Jun 20, 2020 12:42
--- NOTE | 2020-06-20 12:02 | HP ---
ADMIT DATE: 06/20/2020 CHIEF COMPLAINT: Chest pain. HISTORY OF PRESENT ILLNESS: A 49-year-old black female recovering from COVID 3 weeks ago, was seen in the office on the day prior to admission with multiple somatic symptoms and concern about COVID problems. She was reassured that all of her exam was good, chest x-ray was clear and labs were okay, but she came to the ER with sharp midsternal chest pain unrelieved by meds in the ER. Chest x-ray is clear. Labs are all within normal limits. Caution studies are good as well. MEDICATIONS: Listed per the chart about diabetic, otherwise basically healthy, takes Pepcid for acid reflux. FAMILY HISTORY: Unremarkable. SOCIAL HISTORY: Nonsmoker, nondrinker. REVIEW OF SYSTEMS: No other complaints. OBJECTIVE: ENT: Mucosa pink and moist. Sclerae clear. TMs and pharynx normal. NECK: Revealed no carotid bruits, masses or nodes. LUNGS: Clear, without tachypnea. CARDIOVASCULAR: Regular rate. No irregular beat, murmur or tachycardia. Sternum is tender in the midline along with costal cartilages. ABDOMEN: Soft, benign and nontender. EXTREMITIES: Unremarkable. ASSESSMENT: Costochondritis, residual cough after COVID. No sign of active cardiovascular or pulmonary condition at this time. PLAN: Reassured. We will start pantoprazole in place of Pepcid and do an echo for reassurance. Consider D-dimer as well, but the suspicion for pulmonary embolus is low. MARISELA CLEVELAND MD DR: DIANE/andie JOB#: [id number] / [id number]
[2020-06-20 12:21] LABS: CHOLESTEROL/HDL RATIO 3.3
[2020-06-20 15:00] VITALS: BP 115/75
[2020-06-20] MEDS ORDERED: MAGNESIUM CITRATE 296 ML SOLUTION. PO ONE (19:00)
[2020-06-20] MEDS ORDERED: CALCIUM CARBONATE 500 MG TAB.CHEW PO PRN (19:00)
[2020-06-20] MEDS ORDERED: clonazePAM 0.5 MG TABLET PO PRN (19:15)
[2020-06-20 19:18] VITALS: BP 113/64
[2020-06-20 23:29] VITALS: BP 102/62
[2020-06-20] MEDS ORDERED: IBUPROFEN 400 MG TABLET. PO PRN (23:45)
[2020-06-21 03:52] VITALS: BP 99/68
[2020-06-21 07:00] VITALS: BP 106/98
[2020-06-21] MEDS: PANTOPRAZOLE 40 MG TABLET.DR. PO SCH (08:19)
[2020-06-21] MEDS: CYCLOBENZAPRINE 10 MG TABLET. PO SCH (08:19)
[2020-06-21] MEDS: metFORMIN 500 MG TABLET PO SCH (08:20)
[2020-06-21] MEDS: SPIRONOLACTONE 25 MG TABLET PO SCH (08:20)
[2020-06-21] MEDS ORDERED: DULoxetine HCL 20 MG CAPSULE.DR PO SCH (09:00)
--- NOTE | 2020-06-21 09:10 | PDOC ---
Provider Note Date of Service: DATE: 06/21/20 TIME: 09:08 Provider Note [id number] Justifications for Admission Other Justification MARISELA CLEVELAND MD Jun 21, 2020 09:10
--- NOTE | 2020-06-21 09:15 | DS ---
DATE OF DISCHARGE: 06/21/2020 HOSPITAL SUMMARY: A 49-year-old black female who is recovering from about a month ago infection with COVID, has been having intermittent episodes of sharp midsternal chest pain since then. Laboratory studies, chest x-ray were clear. Echo is pending. She was given pantoprazole in place of Pepcid and seemed to have improved and the echo will be done today to further confirm no sign of pericarditis or any problems, which is not suspected now. She is comfortable to be followed as an outpatient after the echo was done. FINAL DIAGNOSES: 1. Chest pain, likely secondary to gastroesophageal reflux disease. 2. Recent COVID infection, recovering. OPERATIONS, PROCEDURES, COMPLICATIONS: None. CONSULTATIONS: Dr. De Paz's group. DISPOSITION: She will take omeprazole [address] of Pepcid. Rest of home meds all remain the same. Activity as tolerated. Ibuprofen for chest wall soreness. PROGNOSIS: Good. MARISELA CLEVELAND MD DR: DIANE/nts JOB#: [id number] / [id number]
[2020-06-21 11:00] VITALS: BP 111/68
--- NOTE | 2020-06-21 12:35 | CARD ---
MR#: [id number] Date of Study: 06/21/2020 Ordering Physician: MARISELA CLEVELAND, Referring Physician: MARISELA CLEVELAND, Tech: Malorie Russell RDCS APPROVED REPORT EXAM: Two-dimensional and M-mode echocardiogram with Doppler and color Doppler. Other Information Quality : Good INDICATION Chest Pain 2D DIMENSIONS RVDd2.6 (2.9-3.5cm)Left Atrium(2D)3.0 (1.6-4.0cm) IVSd1.2 (0.7-1.1cm)Aortic Root(2D)3.1 (2.0-3.7cm) LVDd4.1 (3.9-5.9cm)LVOT Diameter2.0 (1.8-2.4cm) PWd0.8 (0.7-1.1cm)LVDs2.6 (2.5-4.0cm) FS (%) 30.0 %SV49.2 ml LVEF(%)60.0 (>50%) Aortic Valve AoV Peak Fei.121.1cm/sAoV VTI24.4cm AO Peak GR.5.9mmHgLVOT Peak Fei.138.0cm/s AO Mean GR.3mmHgAVA (VMAX)3.68cm2 ANTONIETTA (VTI)3.80cm2 Mitral Valve MV E Bksqoljj079.1cm/sMV DECEL [id number] MV A Lorqqtlx77.0cm/sE/A Ratio1.6 Tricuspid Valve TR P. Yyfxzhdb561dk/sRAP YFPFAESU2leXm TR Peak Gr.33xlJpATBQ80jvMj Pulmonary Vein S1 Lhkiduof96.8cm/sD2 Dwjyxcje29.8cm/s LEFT VENTRICLE The left ventricle is normal size. There is normal left ventricular wall thickness. The left ventricu lar systolic function is normal and the ejection fraction is within normal range. The Ejection Fracti on is 55-60%. There is normal LV segmental wall motion. The left ventricular diastolic function and f illing is normal for age. RIGHT VENTRICLE The right ventricle is normal size. The right ventricular systolic function is normal. ATRIA The left atrium size is normal. The right atrium size is normal. The interatrial septum is intact wit h no evidence for an atrial septal defect or patent foramen ovale as noted on 2-D or Doppler imaging. AORTIC VALVE The aortic valve is normal in structure and function. Doppler and Color Flow revealed no significant aortic regurgitation. There is no significant aortic valvular stenosis. MITRAL VALVE The mitral valve is normal in structure and function. There is no evidence of mitral valve prolapse. There is no mitral valve stenosis. Doppler and Color-flow revealed trace mitral regurgitation. TRICUSPID VALVE The tricuspid valve is normal in structure and function. Doppler and Color Flow revealed trace to mil d tricuspid regurgitation. The PA pressure was estimated at 30 mmHg. There is no tricuspid valve sten osis. PULMONIC VALVE The pulmonary valve is normal in structure and function. Doppler and Color Flow revealed trace to mil d pulmonic valvular regurgitation. There is no pulmonic valvular stenosis. GREAT VESSELS The aortic root is normal in size. The ascending aorta is normal in size. The IVC is normal in size a nd collapses >50% with inspiration. PERICARDIAL EFFUSION There is no evidence of significant pericardial effusion. Critical Notification Critical Value: No <Conclusion> The left ventricular systolic function is normal and the ejection fraction is within normal range. Th e Ejection Fraction is 55-60%. There is normal LV segmental wall motion. Signed by : Boyd De Paz, Electronically Approved : 06/21/2020 12:34:46
--- NOTE | 2020-06-21 12:54 | NUR ---
SS following up with discharge planning. SS reviewed pt chart and discussed with pt RN. Pt is from currently on room air. COVID19 recovered. Discharge order on the chart for home with self care.
--- NOTE | 2020-06-21 13:20 | NUR ---
Discharge Note: DEVORAH MOYER [address] Discharge instructions and discharge home medications reviewed with Patient and a copy given. All questions have been answered and understanding verbalized. The following instructions and handouts were given: reflux, diet for reflux, chest pain, and follow up. Discontinued lines and drains: peripheral IV discontinued. Patient discharged to home via wheelchair accompained by family.
== END 2020-06-21 13:17 | disposition home or self-care (01) | DRG 392 ==
LOC: ER 16:59 → ED HOLD 22:19 → 2 SOUTH 06-20 00:22
PROVIDERS: ADMIT Family Medicine; ATTEND Family Medicine
DX: K21.9 Gastro-esophageal reflux disease without esophagitis (principal); F41.9 Anxiety disorder, unspecified; I10 Essential (primary) hypertension; M94.0 Chondrocostal junction syndrome [Tietze]; M19.90 Unspecified osteoarthritis, unspecified site; E11.9 Type 2 diabetes mellitus without complications; Z82.49 Family history of ischemic heart disease and other diseases of the circulatory system; Z87.442 Personal history of urinary calculi; Z87.891 Personal history of nicotine dependence; Z90.49 Acquired absence of other specified parts of digestive tract; Z88.1 Allergy status to other antibiotic agents; Z88.8 Allergy status to other drugs, medicaments and biological substances; Z98.51 Tubal ligation status
CPT/HCPCS: 36415; 71045; 80053; 80061; 80307; 81001; 83690; 83735; 83880; 84443; 84484; 85025; 85610; 93005; 93306; 96374; 96375; 96376; J2270; J3490; 99285-25; G0378

== ENCOUNTER → 2020-12-04 | Outpatient (CLI) | payer MEDICARE, MEDICAID ==
[~2020-12-04] MED LIST changes: +CLON1TAB12 PO; +CONTRAST GIVEN. MC PRN; +DULO20CA PO; +IOHEXOL 240 MG/ML 50ML VIAL. PO ONE; +IOHEXOL 300 MG/ML 100ML VIAL. IV ONE; +PILO7.5T4 PO
--- NOTE | 2020-12-04 12:01 | RAD ---
EXAM: Abdomen and pelvis CT with intravenous contrast. HISTORY: Pain. TECHNIQUE: Computed tomographic images of the abdomen and pelvis were obtained following the administ ration of intravenous contrast. Multiplanar reformatting was performed. *One or more of the following individualized dose reduction techniques were utilized for this examina tion: 1. Automated exposure control. 2. Adjustment of the mA and/or kV according to patient size. 3. Use of iterative reconstruction technique. COMPARISON: None. FINDINGS: Evaluation of the lower thorax is unremarkable. There is minimal fatty infiltration of the liver along the falciform ligament. There is no suspicious hepatic lesion. The gallbladder surgically absent. There is common bile duct dilatation likely due to reservoir effect status post cystectomy. The pancreas, spleen, stomach and adrenal glands are unremarkable. There is a tiny lateral right renal cortical cyst or tiny focus of renal cortical scarring. There is no hydronephrosis. The appendix is slightly prominent in caliber. There are no secondary findings suc h as wall thickening or surrounding inflammation to suggest appendicitis. There is moderate colonic s tool. There is no evidence of bowel obstruction or abnormal bowel wall thickening. The bladder is unremarkable. There are multiple ovarian follicles with a suspected dominant right ova susana follicle/follicular cyst measuring 2.2 cm. There is a prominent cervix and endometrial stripe. T he aorta is normal in caliber. There is no lymphadenopathy. There is diastasis of the ventral abdominal wall musculature with slight protrusion of loops of small bowel. There is a small devin hernia at the level of the umbilical is resulting in protrusion of loo ps of small bowel. There is no mechanical obstruction. There is scar/relation tissue within the ventr al abdominal wall likely due to prior sections. There is no suspicious osseous lesion. IMPRESSION: 1. 2.2 cm physiologic dominant right ovarian follicle/follicular cyst. The cervix is prominent in siz e and there is a prominent endometrial stripe. This can be physiologic in a premenopausal female. 2. Diastasis of the ventral abdominal wall with small superimposed hernia containing a short segment of small bowel at the level of the umbilicus. No mechanical obstruction or incarceration is seen. 3. Biliary ductal dilatation, likely due to reservoir effect status post cholecystomy. Electronically signed by: Sinai Collins MD (12/04/2020 11:58 AM) [id number]
== END ==
LOC: CT 10:15
PROVIDERS: ATTEND Physician Assistant
DX: K76.0 Fatty (change of) liver, not elsewhere classified (principal); K43.9 Ventral hernia without obstruction or gangrene; N28.1 Cyst of kidney, acquired
CPT/HCPCS: 74177; Q9966; Q9967

== ENCOUNTER → 2021-02-21 | Outpatient (CLI) | payer MEDICARE, MEDICAID ==
[~2021-02-21] MED LIST changes: -CONTRAST GIVEN. MC PRN; -IOHEXOL 240 MG/ML 50ML VIAL. PO ONE; -IOHEXOL 300 MG/ML 100ML VIAL. IV ONE
--- NOTE | 2021-02-21 12:25 | RAD ---
EXAM: Small bowel follow-through exam. HISTORY: Pain and diarrhea. TECHNIQUE: A marketing content specialist image of the abdomen was obtained. Serial overhead images were then obtained follo wing the oral administration of barium contrast. Fluoroscopic spot images were obtained at the conclu edyta of the exam. A total of 3 fluoroscopic images were saved for total fluoroscopy time of 0.5 minut es. COMPARISON: CT dated 12/04/2020. FINDINGS: The marketing content specialist image of the abdomen demonstrates a small amount of gas and stool within the colo n. There is no evidence of bowel obstruction. There are cholecystectomy clips. There are 4 nonrib-candelario ring lumbar segments, a normal variant. The images obtained following the oral administration of cont rast demonstrate a normal appearing stomach. The small bowel loops are normal in caliber. No mucosal lesion is seen. There is no stricture, fistula or extravasation. The small bowel transit time is betw een 40 minutes and 60 minutes. IMPRESSION: Unremarkable small bowel follow-through exam. Electronically signed by: Sinai Collins MD (02/21/2021 12:23 PM) [id number]
== END ==
LOC: RAD 10:23
PROVIDERS: ATTEND Internal Medicine Gastroenterology
DX: R19.7 Diarrhea, unspecified (principal); Z90.49 Acquired absence of other specified parts of digestive tract
CPT/HCPCS: 74250

== ENCOUNTER 2021-09-24 21:09 | Emergency (ER) | payer MEDICARE, MEDICAID ==
[~2021-09-24] VITALS: Ht 162.6 cm; Wt 76.8 kg
[~2021-09-24 21:09] MED LIST changes: +CYCL10TA19 PO; -CYCL10TA2 PO
[2021-09-24] MEDS ORDERED: IV NORMAL SALINE 1000ML BAG 1,000 ML IV ONE (22:45)
[2021-09-24 23:14] LABS: BASO % 1 % (0-3); EOS % 1 % (0-3); HEMATOCRIT 38.8 % (36.0-47.0); LYMPH # 2.8 x10^3/uL (1.0-4.8); LYMPH % 44 % (24-48); MEAN CORPUSCULAR HEMOGLOBIN 33 pg (25-35); MEAN CORPUSCULAR HGB CONC 34 g/dL (31-37); MEAN CORPUSCULAR VOLUME 97 fL (79-100); MONO # 0.6 x10^3/uL (0.0-1.1); MONO % 10 % (0-9); NEUT # 2.8 x10^3/uL (1.8-7.7); NEUT % 45 % (31-73); PLATELET COUNT 206 x10^3/uL (140-400); RED CELL DISTRIBUTION WIDTH 13.2 % (11.5-14.5); WHITE BLOOD COUNT 6.2 x10^3/uL (4.0-11.0)
[2021-09-24 23:30] LABS: CALCIUM 9.5 mg/dL (8.5-10.1); CREATININE 0.8 mg/dL (0.6-1.0); GFR 91.9; POTASSIUM 3.6 mmol/L (3.5-5.1)
[2021-09-24 23:33] LABS: ALBUMIN 3.9 g/dL (3.4-5.0); ALBUMIN/GLOBULIN RATIO 1.1 (1.0-1.7); BACTERIA,URINE 0 /HPF (0-FEW); MAGNESIUM 1.7 mg/dL (1.8-2.4); TOTAL BILIRUBIN 0.5 mg/dL (0.2-1.0); TOTAL PROTEIN 7.3 g/dL (6.4-8.2)
[2021-09-24 23:40] LABS: PREG TEST PT QUAL NEGATIVE (NEG)
[2021-09-24] MEDS ORDERED: MAGNESIUM OXIDE 400 MG TABLET PO STA (23:59)
--- NOTE | 2021-09-25 00:02 | PHYS DOC ---
Past Medical History Past Medical History: Hypertension Additional Past Medical Histor: SICCA, HERNIATED DISC,alopecia, Sjogren syndrome Past Surgical History: Cholecystectomy, , Other Additional Past Surgical Histo: abdominoplasty Smoking Status: Never Smoker Alcohol Use: None Drug Use: None Adult General Chief Complaint Chief Complaint: MULTIPLE COMPLAINTS HPI HPI The patient is a 51-year-old female who presents for evaluation of 3 days of mild watery diarrhea and diminished oral intake. States she has had about 3 episodes of loose stool each day over that interval and has had a decreased appetite in association with the diarrhea. She is concerned that she is dehydrated. She denies any other focal or specific symptoms and specifically denies fevers, nausea or vomiting, upper respiratory congestion/rhinorrhea, cough, sore throat, shortness of breath or chest pain of any kind, abdominal pain of any kind, flank pain, midline back pain, dysuria, hematuria, polyuria or oliguria, changes in bowel habits. She denies recent unusual travel, unusual foods, sick contacts with similar symptoms, recent antibiotic use. Patient is alert, pleasantly and appropriately interactive and in no acute distress with appropriate vital signs, ambulatory with a narrow, steady gait to her ED bed. Review of Systems Review of Systems A 12 point review of systems was completed and was negative except where noted i n HPI above. Current Medications Current Medications Current Medications Medications (Trade) Dose Ordered Sig/Nnamdi Start Time Stop Time Status Last Admin Dose Admin Magnesium Oxide (Magnesium Oxide) 400 mg 1X STAT 09/24/21 23:59 09/25/21 00:10 DC Sodium Chloride 1,000 ml @ 1,000 mls/hr 1X ONCE 09/24/21 22:45 09/24/21 23:44 DC 09/24/21 22:45 1,000 MLS/HR Allergies Allergies Allergies Coded Allergies Type Severity Reaction Last Updated Verified sulfamethoxazole Allergy Intermediate Rash 06/19/20 Yes trimethoprim Allergy Intermediate Rash 06/19/20 Yes prednisone Allergy Unknown 06/19/20 Yes triamcinolone Allergy Unknown Unknown 06/19/20 Yes hydroxychloroquine Adverse Reaction Intermediate NAUSEA 06/19/20 Yes labetalol Adverse Reaction Mild Nausea 06/19/20 Yes Physical Exam Physical Exam 51-year-old female appearing nontoxic and in no acute distress. Head is normocephalic and atraumatic. Neck is supple and nontender. Oropharynx is moist. Lungs are clear to auscultation at all stations. There is a normal S1 and S2 without rubs or gallops and capillary refill is appropriate, less than 2 seconds globally. Abdomen is soft, nontender and nondistended. Skin is warm and dry without cyanosis, clubbing or edema. Psychiatrically, the patient demonstrates appropriate mood and affect and is alert. Evaluation of the extremities reveals BUEs and BLEs neurovascular intact distally strength out of 5, sensation intact light touch in all nerve distributions, radial, DP and PT pulses 2+ and equal bilaterally, capillary refill less than 2 seconds, hands and feet warm and well-perfused. No dependent peripheral edema distally. No calf tenderness or swelling bilaterally. Homans test is negative bilaterally. Current Patient Data Vital Signs Vital Signs Date Time Temp Pulse Resp B/P (MAP) Pulse Ox O2 Delivery O2 Flow Rate FiO2 09/24/21 21:18 98.2 70 18 132/75 (94) 98 Room Air 98.2 Lab Values Laboratory Tests Test 09/24/21 23:04 09/24/21 23:10 White Blood Count 6.2 x10^3/uL (4.0-11.0) Red Blood Count 4.00 x10^6/uL (3.50-5.40) Hemoglobin 13.0 g/dL (12.0-15.5) Hematocrit 38.8 % (36.0-47.0) Mean Corpuscular Volume 97 fL (79-100) Mean Corpuscular Hemoglobin 33 pg (25-35) Mean Corpuscular Hemoglobin Concent 34 g/dL (31-37) Red Cell Distribution Width 13.2 % (11.5-14.5) Platelet Count 206 x10^3/uL (140-400) Neutrophils (%) (Auto) 45 % (31-73) Lymphocytes (%) (Auto) 44 % (24-48) Monocytes (%) (Auto) 10 % (0-9) H Eosinophils (%) (Auto) 1 % (0-3) Basophils (%) (Auto) 1 % (0-3) Neutrophils # (Auto) 2.8 x10^3/uL (1.8-7.7) Lymphocytes # (Auto) 2.8 x10^3/uL (1.0-4.8) Monocytes # (Auto) 0.6 x10^3/uL (0.0-1.1) Eosinophils # (Auto) 0.0 x10^3/uL (0.0-0.7) Basophils # (Auto) 0.0 x10^3/uL (0.0-0.2) Urine Collection Type Unknown Urine Color (Auto) Light yellow Urine Turbidity Clear Urine pH (Auto) 6.5 (<5.0-8.0) Urine Specific [place] 1.005 (1.000-1.030) Urine Protein (Auto) Negative mg/dL (Negative) Urine Glucose (Auto)(UA) Negative mg/dL (Negative) Urine Ketones (Auto) Negative mg/dL (Negative) Urine Blood (Auto) Negative (Negative) Urine Nitrite Negative (Negative) Urine Bilirubin (Auto) Negative (Negative) Urine Urobilinogen (Auto) Normal mg/dL (Normal) Urine Leukocyte Esterase (Auto) Negative (Negative) Urine RBC 1-2 /HPF (0-2) Urine WBC 1-4 /HPF (0-4) Urine Squamous Epithelial Cells Few /LPF Urine Bacteria 0 /HPF (0-FEW) Sodium Level 139 mmol/L (136-145) Potassium Level 3.6 mmol/L (3.5-5.1) Chloride Level 103 mmol/L (98-107) Carbon Dioxide Level 30 mmol/L (21-32) Anion Gap 6 (6-14) Blood Urea Nitrogen 8 mg/dL (7-20) Creatinine 0.8 mg/dL (0.6-1.0) Estimated GFR (Cockcroft-Gault) 91.9 BUN/Creatinine Ratio 10 (6-20) Glucose Level 98 mg/dL (70-99) Calcium Level 9.5 mg/dL (8.5-10.1) Magnesium Level 1.7 mg/dL (1.8-2.4) L Total Bilirubin 0.5 mg/dL (0.2-1.0) Aspartate Amino Transferase (AST) 15 U/L (15-37) Alanine Aminotransferase (ALT) 29 U/L (14-59) Alkaline Phosphatase 47 U/L (46-116) Total Protein 7.3 g/dL (6.4-8.2) Albumin 3.9 g/dL (3.4-5.0) Albumin/Globulin Ratio 1.1 (1.0-1.7) Serum Test, Qualitative Negative (NEG) POC Urine HCG, Qualitative Hcg negative (Negative) Laboratory Tests 09/24/21 23:04 Laboratory Tests 09/24/21 23:04 EKG EKG [] Radiology/Procedures Radiology/Procedures [] Course & Med Decision Making Course & Med Decision Making Labs and urine are unremarkable aside from a very slightly low serum magnesium level which has been addressed with oral repletion. No red flags for bacterial enteritis or colitis today by history or exam. Well-appearing 51-year-old female in no distress. Feeling better after IV fluids here in the emergency department. Ambulatory with a narrow, steady gait. Not significantly dehydrat ed even before she had IV fluids by labs or urine testing. Patient is advised to rest, hydrate and to follow-up very closely with her primary doctor in the office in the next 1 to 2 days. She understands that if she feels worse instead of better or develops other new symptoms of concern that she should return to the emergency department immediately for reevaluation. All questions are answered. Dragon Disclaimer Dragon Disclaimer This electronic medical record was generated, in whole or in part, using a voice recognition dictation system. Departure Departure Impression: Primary Impression: Acute diarrhea Disposition: HOME / SELF CARE / HOMELESS Condition: IMPROVED Referrals: MARISELA CLEVELAND MD (PCP) Patient Instructions: Diarrhea Additional Instructions: Follow-up very closely with your primary care doctor in the office in the next 1 to 2 days for a reevaluation of your symptoms and a discussion of next best steps in care. Drink plenty of fluids to stay hydrated and get plenty of rest. Return to the emergency department right away for worsening symptoms of any kind or with any other new symptoms of concern. ROBERTO CARLOS SOUZA MD Sep 25, 2021 00:02
[2021-09-25 00:30] VITALS: BP 124/78
== END 2021-09-25 00:41 | disposition home or self-care (01) ==
LOC: ER 21:09
DX: R19.7 Diarrhea, unspecified (principal); I10 Essential (primary) hypertension; Z90.49 Acquired absence of other specified parts of digestive tract; Z88.1 Allergy status to other antibiotic agents; Z88.2 Allergy status to sulfonamides; Z88.8 Allergy status to other drugs, medicaments and biological substances; Z88.5 Allergy status to narcotic agent
CPT/HCPCS: 36415; 80053; 81001; 81025; 83735; 84703; 85025; 96372; 99283; J7030; 94002